=== PATIENT | male | born 1955 | race Caucasian/White ===

== ENCOUNTER 2017-03-05 10:13 | Inpatient (IN) | payer OTHER ==
[~2017-03-05] VITALS: Ht 180.3 cm; Wt 97.0 kg
[~2017-03-05 10:13] MED LIST: Z.0.NO CURRENT MEDS
[2017-03-05 10:17] VITALS: BP 112/80; PULSE 74; RESP 16; TEMP 98.6; O2SAT 98
[2017-03-05] MEDS ORDERED: oxyCODONE/ACETAMINOPHEN 5 MG/325 MG TAB PO ONE (10:45)
[2017-03-05] MEDS ORDERED: KETOROLAC TROMETHAMINE 60 MG/2 ML (IM) VIAL IM ONE (10:45)
[2017-03-05] MEDS ORDERED: SODIUM CHLOR 0.9% 1000 ML INJ 800 ML IV ONE (11:23)
[2017-03-05] MEDS ORDERED: SODIUM CHLOR 0.9% 1000 ML INJ 1,000 ML IV ONE (11:23)
[2017-03-05] MEDS ORDERED: cefTRIAXone INJ 1,000 MG in SODIUM CHLORIDE 0.9% INJ 100 ML IV ONE (11:30)
[2017-03-05] MEDS ORDERED: VANCOMYCIN INJ 1,500 MG in SODIUM CHLORID 0.9% 500 ML INJ 500 ML IV ONE (11:30)
[2017-03-05 11:58] LABS: AUTOMATED NEUTROPHIL # 4.9 TH/MM3 (1.8-7.7); BASOPHIL # 0.1 TH/MM3 (0-0.2); BASOPHIL % 1.2 % (0.0-2.0); EOSINOPHIL # 0.2 TH/MM3 (0-0.4); HEMATOCRIT 36.5 % (39.0-51.0); HEMOGLOBIN 12.7 GM/DL (13.0-17.0); LYMPH % 27.8 % (9.0-44.0); LYMPHOCYTE # 2.3 TH/MM3 (1.0-4.8); MEAN CELL VOLUME 90.6 FL (80.0-100.0); MEAN CORPUSCULAR HEMOGLOBIN 31.5 PG (27.0-34.0); MEAN CORPUSCULAR HGB CONC 34.7 % (32.0-36.0); MEAN PLATELET VOLUME 7.8 FL (7.0-11.0); MONO % 7.8 % (0.0-8.0); MONOCYTE # 0.6 TH/MM3 (0-0.9); NEUT % 60.2 % (16.0-70.0); PLATELET COUNT 423 TH/MM3 (150-450); RED BLOOD COUNT 4.02 MIL/MM3 (4.50-5.90); RED CELL DISTRIBUTION WIDTH 12.5 % (11.6-17.2); WHITE BLOOD COUNT 8.2 TH/MM3 (4.0-11.0)
[2017-03-05 12:30] LABS: ALBUMIN 3.2 GM/DL (3.4-5.0); ALT (GPT) 60 U/L (12-78); AST (GOT) 34 U/L (15-37); BICARBONATE 28.9 MEQ/L (21.0-32.0); BLOOD UREA NITROGEN 23 MG/DL (7-18); CALCIUM 8.9 MG/DL (8.5-10.1); CHLORIDE 101 MEQ/L (98-107); CREATININE 0.92 MG/DL (0.60-1.30); GLOMERULAR FILTRATION RATE 84 ML/MIN (>89); GLUCOSE,RANDOM 95 MG/DL (74-106); SODIUM (NA) 136 MEQ/L (136-145)
[2017-03-05 12:32] LABS: ALKALINE PHOSPHATASE 101 U/L (45-117); TOTAL BILIRUBIN ADULT 0.4 MG/DL (0.2-1.0); TOTAL PROTEIN 7.4 GM/DL (6.4-8.2)
[2017-03-05 12:37] VITALS: BP 136/94; PULSE 57; RESP 19; O2SAT 99
[2017-03-05 12:47] LABS: BILIRUBIN, URINE NEG (NEG); BLOOD, URINE NEG (NEG); GLUCOSE,URINE NEG (NEG); KETONE, URINE NEG (NEG); MUCUS URINE FEW /lpf (OCC); NITRITE,URINE NEG (NEG); PH, URINE 5.5 (5.0-8.5); URINE COLOR YELLOW (YELLW/STRAW); URINE LEUKOCYTE ESTERASE NEG (NEG)
[2017-03-05] MEDS ORDERED: HYDROmorphone HCL PF 2 MG/ML VIAL IV PUSH ONE (13:15)
[2017-03-05 13:31] LABS: WBC, SYNOVIAL FLUID 64000 /MM3 (0-200)
--- NOTE | 2017-03-05 13:55 | PD ---
HPI Chief Complaint: Pain: Acute or Chronic Time Seen by Provider: 10:20 Travel History International Travel<30 days: No Contact w/Intl Traveler<30days: No Traveled to known affect area: No History of Present Illness HPI 61-year-old male arrives to the ER complaining of right knee pain. He's had had intermittent knee pain for more than a week now. He reports swelling and pain with movement. Palpation is also painful. He denies fever. Onset gradual. Timing constant. He reports arthrocentesis was performed and Major approximately one week prior. PFSH Past Medical History Cancer: Yes (skin ca ) Cardiovascular Problems: No Diabetes: No Diminished Hearing: No Endocrine: No Genitourinary: No Hepatitis: No Hiatal Hernia: No Immune Disorder: No Musculoskeletal: No Neurologic: No Psychiatric: No Reproductive: No Respiratory: No Sleep Apnea: Yes Thyroid Disease: No Past Surgical History Abdominal Surgery: Yes (umbilical hernia repair) AICD: No Joint Replacement: No Pacemaker: No Tonsillectomy: Yes Other Surgery: Yes Social History Alcohol Use: Yes ([facility]) Tobacco Use: No Substance Use: No Allergies-Medications (Allergen,Severity, Reaction): Coded Allergies: No Known Allergies (Verified Allergy, Unknown, 03/05/17) Reported Meds & Prescriptions Reported Meds & Active Scripts Active Review of Systems Except as stated in HPI: all other systems reviewed are Neg General / Constitutional: No: Fever Physical Exam Narrative GENERAL: 61-year-old male well-nourished well-developed mild to moderate distress SKIN: Focused skin assessment warm/dry. HEAD: Atraumatic. Normocephalic. EYES: Pupils equal and round. No scleral icterus. No injection or drainage. ENT: No nasal bleeding or discharge. Mucous membranes pink and moist. NECK: Trachea midline. No JVD. CARDIOVASCULAR: Regular rate and rhythm. No murmur appreciated. RESPIRATORY: No accessory muscle use. Clear to auscultation. Breath sounds equal bilaterally. GASTROINTESTINAL: Abdomen soft, non-tender, nondistended. Hepatic and splenic margins not palpable. MUSCULOSKELETAL: There is swelling about the right knee in the suprapatellar distribution and along the lateral aspects of the patella. No erythema or induration about the skin. There is marked tenderness with flexion extension at the knee. NEUROLOGICAL: Awake and alert. No obvious cranial nerve deficits. Motor grossly within normal limits. Normal speech. PSYCHIATRIC: Appropriate mood and affect; insight and judgment normal. Data Data Last Documented VS Vital Signs Date Time Temp Pulse Resp B/P (MAP) Pulse Ox O2 Delivery O2 Flow Rate FiO2 03/05/17 12:37 57 19 136/94 (108) 99 Room Air 03/05/17 10:17 98.6 Vital signs reviewed Orders Orders Oxycodone-Acetamin 5-325 Mg (Percocet (03/05/17 10:45) Ketorolac Inj (Toradol Inj) (03/05/17 10:45) Sepsis Workup Initiated (03/05/17 ) Complete Blood Count With Diff (03/05/17 11:23) Comprehensive Metabolic Panel (03/05/17 11:23) Lactic Acid Sepsis Protocol (03/05/17 11:23) Urinalysis - C+S If Indicated (03/05/17 11:23) Blood Culture (03/05/17 11:23) Ecg Monitoring (03/05/17 11:23) Iv Access Insert/Monitor (03/05/17 11:23) Oximetry (03/05/17 11:23) Oxygen Administration (03/05/17 11:23) Sodium Chlor 0.9% 1000 Ml Inj (Ns 1000 M (03/05/17 11:23) Sodium Chlor 0.9% 1000 Ml Inj (Ns 1000 M (03/05/17 11:23) Ceftriaxone Inj (Rocephin Inj) (03/05/17 11:30) Vancomycin Inj (Vancomycin Inj) (03/05/17 11:30) Synovial Fluid Glucose (03/05/17 11:23) Synovial Fluid Total Protein (03/05/17 11:23) Synovial Fl Cell Count + Diff (03/05/17 11:23) Fluid Culture And Gram Stain (03/05/17 11:23) Hydromorphone Pf Inj (Dilaudid Pf Inj) (03/05/17 13:15) Admit To Inpatient (03/05/17 ) Code Status (03/05/17 13:59) Vital Signs (Adult) Q4H (03/05/17 13:59) Activity Oob With Assistance (03/05/17 13:59) Diet Regular Basic (03/05/17 Lunch) Sodium Chloride 0.9% Flush (Ns Flush) (03/05/17 14:00) Sodium Chloride 0.9% Flush (Ns Flush) (03/05/17 21:00) Acetaminophen (Tylenol) (03/05/17 14:00) Ondansetron Inj (Zofran Inj) (03/05/17 14:00) Basic Metabolic Panel (Bmp) (03/06/17 06:00) Complete Blood Count With Diff (03/06/17 06:00) Chest, Single Ap (03/05/17 13:59) Electrocardiogram (03/05/17 13:59) Pt Request For Service (03/05/17 13:59) Scd Bilateral/Knee High DOMINIK.BID (03/05/17 13:59) Naloxone Inj (Narcan Inj) (03/05/17 14:00) Magnesium Hydroxide Liq (Milk Of Magnesi (03/05/17 14:00) Inpatient Certification (03/05/17 ) Westergren Sedimentation Rate (03/05/17 13:59) Ceftriaxone Inj (Rocephin Inj) (03/06/17 08:00) Consult Orthopedic (03/05/17 ) Admit Order (Ed Use Only) (03/05/17 14:09) Vancomycin Consult Pharmacy (Vancomycin (03/05/17 14:15) Acetamin-Hydrocod 325-5 Mg ([place] 5-325 (03/05/17 14:15) Hydromorphone Pf Inj (Dilaudid Pf Inj) (03/05/17 14:15) Labs Laboratory Tests Test 03/05/17 11:30 03/05/17 11:40 Urine Color YELLOW Urine Turbidity CLEAR Urine pH 5.5 Urine Specific [place] 1.021 Urine Protein TRACE mg/dL Urine Glucose (UA) NEG mg/dL Urine Ketones NEG mg/dL Urine Occult Blood NEG Urine Nitrite NEG Urine Bilirubin NEG Urine Urobilinogen LESS THAN 2.0 MG/DL Urine Leukocyte Esterase NEG Urine WBC 3 /hpf Urine Mucus FEW /lpf Microscopic Urinalysis Comment CATH-CULT NOT IND Synovial Fluid Color YELLOW Synovial Fluid Appearance MARKED Synovial Fluid WBC 60727 /MM3 Synovial Fluid RBC 3000 /MM3 Synovial Fluid Neutrophils 100 % Synovial Fluid Lymphocytes 0 % Synovial Fluid Glucose 8 mg/dL Synovial Fluid Total Protein 4.7 g/dL White Blood Count 8.2 TH/MM3 Red Blood Count 4.02 MIL/MM3 Hemoglobin 12.7 GM/DL Hematocrit 36.5 % Mean Corpuscular Volume 90.6 FL Mean Corpuscular Hemoglobin 31.5 PG Mean Corpuscular Hemoglobin Concent 34.7 % Red Cell Distribution Width 12.5 % Platelet Count 423 TH/MM3 Mean Platelet Volume 7.8 FL Neutrophils (%) (Auto) 60.2 % Lymphocytes (%) (Auto) 27.8 % Monocytes (%) (Auto) 7.8 % Eosinophils (%) (Auto) 3.0 % Basophils (%) (Auto) 1.2 % Neutrophils # (Auto) 4.9 TH/MM3 Lymphocytes # (Auto) 2.3 TH/MM3 Monocytes # (Auto) 0.6 TH/MM3 Eosinophils # (Auto) 0.2 TH/MM3 Basophils # (Auto) 0.1 TH/MM3 CBC Comment DIFF FINAL Differential Comment Erythrocyte Sedimentation Rate 65 mm/hr Blood Urea Nitrogen 23 MG/DL Creatinine 0.92 MG/DL Random Glucose 95 MG/DL Total Protein 7.4 GM/DL Albumin 3.2 GM/DL Calcium Level 8.9 MG/DL Alkaline Phosphatase 101 U/L Aspartate Amino Transf (AST/SGOT) 34 U/L Alanine Aminotransferase (ALT/SGPT) 60 U/L Total Bilirubin 0.4 MG/DL Sodium Level 136 MEQ/L Potassium Level 3.7 MEQ/L Chloride Level 101 MEQ/L Carbon Dioxide Level 28.9 MEQ/L Anion Gap 6 MEQ/L Estimat Glomerular Filtration Rate 84 ML/MIN Lactic Acid Level 0.9 mmol/L MDM Medical Decision Making Medical Screen Exam Complete: Yes Emergency Medical Condition: Yes Medical Record Reviewed: Yes Differential Diagnosis Septic arthritis, osteoporosis, hemarthrosis Narrative Course The patient has septic arthritis. Synovial fluid white cells are 68,000 and are 100% neutrophils. Vancomycin initiated. Sepsis protocol IV fluids started. Case d/w mars [facility], who states operative intervention will be scheduled for tomorrow. Patient d/w with Dr Bishop for [facility] hospitalist service Diagnosis Primary Impression: Septic arthritis Qualified Codes: M00.9 - Pyogenic arthritis, unspecified Admitting Information Admitting Physician Requests: Admit Scripts Hydrocodone-Acetaminophen ([place]) 5 Mg-325 Mg Tab 1 TAB PO Q4H Y for PAIN, #60 TAB 0 Refills Prov: Jacobo Lilly PA/Grocery Carrier PA 03/06/17 David Bansal MD Mar 05, 2017 13:55
[2017-03-05] MEDS ORDERED: NALOXONE HCL 0.4 MG/ML AMP IV PUSH PRN (14:00)
[2017-03-05] MEDS ORDERED: ONDANSETRON HCL 4 MG/2 ML VIAL IVP PRN (14:00)
[2017-03-05] MEDS ORDERED: ACETAMINOPHEN 325 MG TAB PO PRN (14:00)
[2017-03-05] MEDS ORDERED: MAGNESIUM HYDROXIDE SUSP 30 ML CUP PO PRN (14:00)
[2017-03-05] MEDS ORDERED: ACETAMINOPHEN/HYDROcodone 325 MG/5 MG TAB PO PRN (14:15)
[2017-03-05] MEDS ORDERED: Vancomycin Consult Pharmacy 1 EA OTHER SCH (14:15)
[2017-03-05] MEDS ORDERED: HYDROmorphone HCL PF 2 MG/ML VIAL IV PUSH PRN (14:15)
--- NOTE | 2017-03-05 14:21 | HHI.HP ---
HPI Service [facility] Hospitalists Primary Care Physician Luis Jones D.O. Admission Diagnosis Septic Arthritis R Knee Chief Complaint: Edema and pain right knee Travel History International Travel<30 Days: No Contact w/Intl Traveler <30 Da: No Traveled to Known Affected Are: No History of Present Illness This is a 61-year-old male patient with past medical history which includes borderline hypertension not on medication, obstructive and obstructive sleep apnea does use CPAP at night. Patient has an extensive history regarding his right knee. All meniscal tear right knee with repair approximately 18 months ago. Patient then had cortisone injection with Dr. Duron approximally 4 months ago. Approximately 4 months ago patient had contusion after kneeling on a rock in [facility] diagnosed with patella bursitis. Then after windsurfing in [place] patient noticed his right knee became swollen and painful he was treated for hospital-acquired with a aspirated fluid was serosanguineous at that time he was discharged home with ibuprofen diagnosed with effusion. Patient was also given a cortisone injection while in [place]. Patient returned to the hospital today due to continued edema and pain in the right knee. Aspiration of joint fluid reveals 64,000 white blood cells, 3000 red blood cells 100 neutrophils. Consistent with septic arthritis. Patient has been started on vancomycin and Rocephin in the emergency department. Patient denies fevers chills nausea vomiting diarrhea constipation chest pain or shortness of breath. Review of Systems Constitutional: DENIES: Fatigue, Fever Eyes: DENIES: Blurred vision, Diplopia, Vision loss Respiratory: DENIES: Cough, Sputum production, Shortness of breath Cardiovascular: DENIES: Chest pain, Palpitations, Dyspnea on Exertion Musculoskeletal: COMPLAINS OF: Joint pain, Stiffness, Joint Swelling Neurologic: DENIES: Abnormal gait, Headache, Localized weakness, Speech Problems Psychiatric: DENIES: Anxiety, Confusion, Depression Past Family Social History Past Medical History borderline hypertension not on medication, obstructive and obstructive sleep apnea does use CPAP at night Past Surgical History Colonoscopy and hernia repair Reported Medications Soma 350 mg as needed at bedtime Allergies: Coded Allergies: No Known Allergies (Verified Allergy, Unknown, 03/05/17) Active Ordered Medications Current Medications Medications (Trade) Dose Ordered Sig/Jc Route Start Time Stop Time Status Last Admin (NS Flush) 2 ml UNSCH PRN IV FLUSH 03/05/17 14:00 (NS Flush) 2 ml BID IV FLUSH 03/05/17 21:00 (Tylenol) 650 mg Q4H PRN PO 03/05/17 14:00 (Zofran Inj) 4 mg Q6H PRN IVP 03/05/17 14:00 (Narcan Inj) 0.4 mg UNSCH PRN IV PUSH 03/05/17 14:00 (Milk Of Lorena Christensen) 30 ml Q12H PRN PO 03/05/17 14:00 Vancomycin HCl 1000 mg/Sodium Chloride 250 ml @ 250 mls/hr Q12H IV 03/06/17 01:00 UNV Ceftriaxone Sodium 1000 mg/ Sodium Chloride 100 ml @ 200 mls/hr Q24H IV 03/06/17 08:00 Pharmacy Profile Note ml @ 0 mls/hr UNSCH OTHER 03/05/17 14:15 ([place] 5-325 Mg) 1 tab Q4H PRN PO 03/05/17 14:15 UNV (Dilaudid Pf Inj) 0.5 mg Q4H PRN IV PUSH 03/05/17 14:15 UNV Family History Review of noncontributory Social History Former tobacco user Denies illicit drug use Occasional social EtOH use Physical Exam Vital Signs Vital Signs Date Time Temp Pulse Resp B/P (MAP) Pulse Ox O2 Delivery O2 Flow Rate FiO2 03/05/17 12:37 57 19 136/94 (108) 99 Room Air 03/05/17 12:29 98 Room Air 03/05/17 12:29 (91) Room Air 03/05/17 10:17 98.6 74 16 112/80 (91) 98 Physical Exam GENERAL: This is a well-nourished, well-developed patient, in no apparent distress. SKIN: Edema right knee HEAD: Atraumatic. Normocephalic. No temporal or scalp tenderness. EYES: Extraocular motions intact. No scleral icterus. No injection or drainage. ENT: Nose without bleeding, purulent drainage or septal hematoma. Throat without erythema, tonsillar hypertrophy or exudate. Uvula midline. Airway patent. NECK: Trachea midline. No JVD or lymphadenopathy. Supple, nontender, no meningeal signs. CARDIOVASCULAR: Regular rate and rhythm RESPIRATORY: Clear to auscultation. Breath sounds equal bilaterally. GASTROINTESTINAL: Abdomen soft, non-tender, nondistended. MUSCULOSKELETAL: No calf tenderness. Negative Homans sign bilaterally. NEUROLOGICAL: Awake and alert. No focal deficits appreciated. Motor and sensory grossly within normal limits. Five out of 5 muscle strength in all muscle groups. Normal speech. Laboratory Laboratory Tests Test 03/05/17 11:30 03/05/17 11:40 Urine Color YELLOW Urine Turbidity CLEAR Urine pH 5.5 Urine Specific [place] 1.021 Urine Protein TRACE Urine Glucose (UA) NEG Urine Ketones NEG Urine Occult Blood NEG Urine Nitrite NEG Urine Bilirubin NEG Urine Urobilinogen LESS THAN 2.0 Urine Leukocyte Esterase NEG Urine WBC 3 Urine Mucus FEW Microscopic Urinalysis Comment CATH-CULT NOT IND Synovial Fluid Color YELLOW Synovial Fluid Appearance MARKED Synovial Fluid WBC 41022 Synovial Fluid RBC 3000 Synovial Fluid Neutrophils 100 Synovial Fluid Lymphocytes 0 White Blood Count 8.2 Red Blood Count 4.02 Hemoglobin 12.7 Hematocrit 36.5 Mean Corpuscular Volume 90.6 Mean Corpuscular Hemoglobin 31.5 Mean Corpuscular Hemoglobin Concent 34.7 Red Cell Distribution Width 12.5 Platelet Count 423 Mean Platelet Volume 7.8 Neutrophils (%) (Auto) 60.2 Lymphocytes (%) (Auto) 27.8 Monocytes (%) (Auto) 7.8 Eosinophils (%) (Auto) 3.0 Basophils (%) (Auto) 1.2 Neutrophils # (Auto) 4.9 Lymphocytes # (Auto) 2.3 Monocytes # (Auto) 0.6 Eosinophils # (Auto) 0.2 Basophils # (Auto) 0.1 CBC Comment DIFF FINAL Differential Comment Blood Urea Nitrogen 23 Creatinine 0.92 Random Glucose 95 Total Protein 7.4 Albumin 3.2 Calcium Level 8.9 Alkaline Phosphatase 101 Aspartate Amino Transf (AST/SGOT) 34 Alanine Aminotransferase (ALT/SGPT) 60 Total Bilirubin 0.4 Sodium Level 136 Potassium Level 3.7 Chloride Level 101 Carbon Dioxide Level 28.9 Anion Gap 6 Estimat Glomerular Filtration Rate 84 Lactic Acid Level 0.9 Date/Time Source Procedure Growth Status 03/05/17 11:40 Blood Peripheral Aerobic Blood Culture Pending Received 03/05/17 11:40 Blood Peripheral Anaerobic Blood Culture Pending Received 03/05/17 11:30 Fluid Synovial Fluid Gram Stain - Final Resulted 03/05/17 11:30 Fluid Synovial Fluid Body Fluid Culture Pending Resulted Result Diagram: 03/05/17 1140 03/05/17 1140 Caprini VTE Risk Assessment Caprini VTE Risk Assessment: No/Low Risk (score <= 1) Caprini Risk Assessment Model Point Value = 1 Point Value = 2 Point Value = 3 Point Value = 5 Age 41-60 Minor surgery BMI > 25 kg/m2 Swollen legs Varicose veins or History of unexplained or recurrent spontaneous Oral contraceptives or hormone replacement Sepsis (< 1 month) Serious lung disease, including pneumonia (< 1 month) Abnormal pulmonary function Acute myocardial infarction Congestive heart failure (< 1 month) History of inflammatory bowel disease Medical patient at bed rest Age 61-74 Arthroscopic surgery Major open surgery (> 45 min) Laparoscopic surgery (> 45 min) Malignancy Confined to bed (> 72 hours) Immobilizing plaster cast Central venous access Age >= 75 History of VTE Family history of VTE Factor V Leiden Prothrombin [id number] Lupus anticoagulant Anticardiolipin antibodies Elevated serum homocysteine Heparin-induced thrombocytopenia Other congenital or acquired thrombophilia Stroke (< 1 month) Elective arthroplasty Hip, pelvis, or leg fracture Acute spinal cord injury (< 1 month) Prophylaxis Regimen Total Risk Factor Score Risk Level Prophylaxis Regimen 0-1 Low Early ambulation 2 Moderate Order ONE of the following: *Sequential Compression Device (SCD) *Heparin 5000 units SQ BID 3-4 Higher Order ONE of the following medications: *Heparin 5000 units SQ TID *Enoxaparin/Lovenox 40 mg SQ daily (WT < 150 kg, CrCl > 30 mL/min) *Enoxaparin/Lovenox 30 mg SQ daily (WT < 150 kg, CrCl > 10-29 mL/min) *Enoxaparin/Lovenox 30 mg SQ BID (WT < 150 kg, CrCl > 30 mL/min) AND/OR *Sequential Compression Device (SCD) 5 or more Highest Order ONE of the following medications: *Heparin 5000 units SQ TID (Preferred with Epidurals) *Enoxaparin/Lovenox 40 mg SQ daily (WT < 150 kg, CrCl > 30 mL/min) *Enoxaparin/Lovenox 30 mg SQ daily (WT < 150 kg, CrCl > 10-29 mL/min) *Enoxaparin/Lovenox 30 mg SQ BID (WT < 150 kg, CrCl > 30 mL/min) AND *Sequential Compression Device (SCD) Assessment and Plan Problem List: (1) Septic arthritis ICD Codes: M00.9 - Pyogenic arthritis, unspecified Status: Acute Plan: -Patient was in his normal state of health until approximately a week ago while he was in [facility]. After windsurfing patient noticed his right knee became swollen and painful he was treated in [facility] with aspiration of serosanguineous fluid then discharged home with ibuprofen diagnosed with joint effusion. Patient returned to the hospital today due to continued edema and pain in the right knee. -Aspiration of joint fluid reveals 64,000 white blood cells, 3000 red blood cells 100 neutrophils. Consistent with septic arthritis. -Patient has been started on vancomycin (with pharmacy consult) and Rocephin in the emergency department. - Orthopedic surgery consulted - patient NPO after midnight plan OR tomorrow - patient does not want hydrocodone for pain reports Soma works well for him SCDs for DVT prophylaxis Assessment and Plan Patient examined. Assessment and plan formulated with Kay Mejia PA-C. I agree with the above. Dr. Cedillo to take pt to OR for I&D. Physician Certification 2 Midnight Certification Type: Admission for Inpatient Services Order for Inpatient Services The services are ordered in accordance with Medicare regulations or non- Medicare payer requirements, as applicable. In the case of services not specified as inpatient-only, they are appropriately provided as inpatient services in accordance with the 2-midnight benchmark. Estimated LOS (days): 3 days is the estimated time the patient will need to remain in the hospital, assuming treatment plan goals are met and no additional complications. Post-Hospital Plan: Home aKy Mejia Mar 05, 2017 14:21 Silver Bishop DO Mar 08, 2017 14:03
--- NOTE | 2017-03-05 15:08 | RADRPT ---
EXAM DATE/TIME: 03/05/2017 14:33 [place] COMPARISON: No previous studies available for comparison. INDICATIONS : Preoperative chest X-Ray. No chest complaints. MEDICAL HISTORY : None. SURGICAL HISTORY : Umbilical hernia repair. Right knee athroscopy. ENCOUNTER: Initial ACUITY: 2 weeks PAIN SCORE: 5/10 LOCATION: Bilateral chest FINDINGS: A single view of the chest demonstrates the lungs to be symmetrically aerated without evidence of mas s, infiltrate or effusion. The cardiomediastinal contours are unremarkable. Osseous structures are intact. CONCLUSION: No acute disease. Leoncio Cleveland MD FACR on March 05, 2017 at 15:05 Board Certified Radiologist. This report was verified electronically.
[2017-03-05 16:00] VITALS: BP 107/64; PULSE 55; RESP 16; TEMP 97.1; O2SAT 96
--- NOTE | 2017-03-05 17:40 | MB ---
cc: RONNY CEDILLO DATE OF CONSULTATION: 03/05/2017 CHIEF COMPLAINT Right knee pain and swelling. HISTORY OF PRESENT ILLNESS The patient is a 61-year-old white male who presents today with a 3-4 weeks history of right knee pain and swelling. He reports approximately 3-4 weeks ago he was in [place] when he had knee pain and swelling. He went to the emergency room in [place] and states that they drained his knee with a needle and tested for cultures. He reports that those cultures came back negative and had no signs of infection. He has since travel back home here to [place] and states that the pain has gotten worse over the past couple of weeks. He reports that there was significant pain and swelling in the right knee. He reports difficulty ambulating. He reports pain with weightbearing and pain with movement of the knee. He reports noticeable swelling and also states he has some redness of the knee. Denies any numbness, tingling or radiation of symptoms. Denies any recent fall and cannot remember any significant mechanism or insinuating incident that would have caused this. Denies any shortness of breath. 03/15 denies any fevers. Denies any chills. Aspiration was done in the emergency department which showed 64,000 white blood cell count, consistent with septic arthritis and the cultures showed gram-positive cocci in pairs. REVIEW OF SYSTEMS Review of systems negative for what is mentioned in the HPI. PAST MEDICAL HISTORY: Borderline hypertension which he does not have any treatment obstructive sleep apnea for which he uses C-PAP PAST SURGICAL HISTORY: Past surgical history of colonoscopy in hernia repair. REPORTED MEDICATIONS: Soma 350 milligrams as needed at bedtime. ALLERGIES NO KNOWN DRUG ALLERGIES MEDICATIONS: Inpatient medications for complete list of those please see the patient's chart. FAMILY HISTORY Noncontributory. SOCIAL HISTORY Former drug user. Denies illicit drug use. Occasional alcohol use. PHYSICAL EXAMINATION VITAL SIGNS: pulse 57, temperature 98.6, respiratory 19, blood pressure 136/94, O2 saturation 99 on room air. IN GENERAL: Well-developed, well-nourished 61- year-old white male in no acute distress resting comfortably. Head: Normocephalic, atraumatic. Ears: Hearing intact bilaterally. Eyes: Extraocular motions intact and pupils equal, round and reactive to light. NEUROLOGIC: Cranial nerves II-XII are grossly intact. NECK: Is supple. No evidence of lymphadenopathy. CHEST: No use of accessory muscles while breathing and no wheezes appreciated at bedside. HEART: No grade 4 murmur present. MUSCULOSKELETAL: Right leg full movement of the hip, ankle and toes and no pain. There is 2 to 3+ swelling of the right knee. There is noticeable fluctuance. There is a bandage from previous arthrocentesis. He has pain with flexion/extension of the knee. There is no active drainage. He has full sensation distally. Left lower extremity full motion of the hip, knee, ankle and toes and no pain with full sensation distally. RESULTS Knee aspirate of the right knee yielded positive growth of gram-positive cocci in pairs with a 60,000 white count. ASSESSMENT Septic arthritis the right knee. PLAN The patient ate breakfast this morning and is unable to proceed to surgery this time. He will knee definitive irrigation and debridement of the right knee. We will plan on doing this first thing in the morning. He will have diet today and be n.p.o. after midnight. We will take him to surgery tomorrow. The risks and benefits of the surgery were discussed with patient and include, but not limited to, infection, pain, blood loss, progression of arthritis, heart attack, stroke, risk of anesthesia. Informed this of the over irrigation debridement right knee will plan on doing this tomorrow. We will then consult infectious disease to manage IV antibiotics. The patient understood and questions were answered and the above the patient was reviewed with and discussed with Dr. Cedillo and he agreed with the above dictation. DICTATED BY: Jacobo Lilly Jacobo Salazar /2:31 PM /5:00 PM
[2017-03-05 20:00] VITALS: BP 107/71; PULSE 64; RESP 20; TEMP 96.9; O2SAT 95
[2017-03-05] MEDS: CARISOPRODOL 350 MG TAB PO PRN (20:57)
[2017-03-05] MEDS: SODIUM CHLORIDE 0.9% FLUSH 10 ML FLUSH IV FLUSH SCH (20:58)
[2017-03-06] VITALS (7 sets, daily range): BP systolic 105–137; BP diastolic 60–82; PULSE 63–88; RESP 18–20; TEMP 97.7–99.6; O2SAT 93–100
[2017-03-06] MEDS ORDERED: VANCOMYCIN INJ 1,000 MG in SODIUM CHLOR 0.9% 250 ML INJ 250 ML IV SCH (01:00)
[2017-03-06] MEDS: VANCOMYCIN 1,500 MG/NS 500 ML IV SCH ×4 (02:06→11:51)
[2017-03-06] MEDS: SODIUM CHLORIDE 0.9% FLUSH 10 ML FLUSH IV FLUSH PRN ×2 (02:07→06:01)
[2017-03-06] MEDS: HYDROmorphone HCL PF 2 MG/ML VIAL IV PRN ×6 (02:09→20:26)
[2017-03-06] MEDS ORDERED: LACTATED RINGER'S 1000 ML IV PRN (06:00)
--- NOTE | 2017-03-06 07:33 | PD.ORT.PN ---
Subjective Subjective Remarks s/p right knee infection Objective Vitals Vital Signs Date Time Temp Pulse Resp B/P (MAP) Pulse Ox O2 Delivery O2 Flow Rate FiO2 03/06/17 04:00 98.0 63 20 106/70 (82) 95 03/06/17 00:00 98.0 63 20 126/73 (90) 96 03/05/17 20:00 96.9 64 20 107/71 (83) 95 03/05/17 17:00 18 03/05/17 16:00 97.1 55 16 107/64 (78) 96 03/05/17 15:11 (108) 03/05/17 12:37 57 19 136/94 (108) 99 Room Air 03/05/17 12:29 98 Room Air 03/05/17 12:29 (91) Room Air 03/05/17 10:17 98.6 74 16 112/80 (91) 98 I/O 03/05/17 03/05/17 03/05/17 03/06/17 03/06/17 03/06/17 07:00 15:00 23:00 07:00 15:00 23:00 Intake Total 2100 ml 1115 ml Balance 2100 ml 1115 ml Intake Oral 600 ml IV Total 2100 ml 515 ml # Voids 1 Result Diagram: 03/05/17 1140 03/05/17 1140 Imaging Last 24 hours Impressions Chest X-Ray 03/05/17 1359 Signed Impressions: Service Date/Time: Sunday, March 05, 2017 14:33 - CONCLUSION: No acute disease. Leoncio Cleveland MD FACR Objective Remarks RLE: swelling and erythema. pain with movement Assessment & Plan Assessment and Plan 1) Right knee septic arthritis -npo -surgery today POST OP -WBAT -daily dressing changes POD 2 -DC Drain POD 3 -Infectious dz consulted for IV Abx mgmt -clear for DC home once IV Abx arranged -f/u with Nguyen or PA in 2 weeks Jacobo Lilly/Wet Cotton Feeder PA Mar 06, 2017 07:33
[2017-03-06] MEDS ORDERED: NORC5TAB PO (07:34)
--- NOTE | 2017-03-06 07:35 | HHI.FF ---
Face to Face Verification Diagnosis: (1) Septic arthritis Nursing Nursing: Other (PICC line management) Dressing Changes: Daily dressing change, Benny wrap, 4x4s, Xeroform I have seen patient Pablo Taylor on 03/06/17. My clinical findings support the need for the requested home health care services because: Ltd mobility - disease progression I certify that my clinical findings support that this patient is homebound because: Post-op weakness Jacobo Lilly/First Popeye MCLEAN Mar 06, 2017 07:35
[2017-03-06] MEDS: SODIUM CHLORIDE 0.9% FLUSH 10 ML FLUSH IV FLUSH SCH ×2 (07:51→20:29)
[2017-03-06] MEDS ORDERED: cefTRIAXone INJ 1,000 MG in SODIUM CHLORIDE 0.9% INJ 100 ML IV SCH (08:00)
[2017-03-06] MEDS ORDERED: GENTAMICIN SULFATE 80 MG/2 ML VIAL ONE (08:47)
[2017-03-06 08:56] LABS: AUTOMATED NEUTROPHIL # 4.9 TH/MM3 (1.8-7.7); BASOPHIL % 0.6 % (0.0-2.0); EOSINOPHIL # 0.3 TH/MM3 (0-0.4); EOSINOPHIL % 3.2 % (0.0-4.0); HEMATOCRIT 33.6 % (39.0-51.0); HEMOGLOBIN 11.5 GM/DL (13.0-17.0); LYMPH % 23.1 % (9.0-44.0); LYMPHOCYTE # 1.8 TH/MM3 (1.0-4.8); MEAN CORPUSCULAR HGB CONC 34.1 % (32.0-36.0); MEAN PLATELET VOLUME 7.7 FL (7.0-11.0); MONO % 10.5 % (0.0-8.0); MONOCYTE # 0.8 TH/MM3 (0-0.9); NEUT % 62.6 % (16.0-70.0); PLATELET COUNT 369 TH/MM3 (150-450); RED BLOOD COUNT 3.69 MIL/MM3 (4.50-5.90); RED CELL DISTRIBUTION WIDTH 12.6 % (11.6-17.2); WHITE BLOOD COUNT 7.9 TH/MM3 (4.0-11.0)
[2017-03-06 09:19] LABS: BICARBONATE 29.1 MEQ/L (21.0-32.0); CALCIUM 8.3 MG/DL (8.5-10.1); CREATININE 0.78 MG/DL (0.60-1.30)
[2017-03-06] MEDS ORDERED: MORPHINE SULFATE 2 MG/ML INJ IV PUSH PRN (09:30)
[2017-03-06] MEDS ORDERED: diphenhydrAMINE HCL 25 MG CAP PO PRN (09:30)
[2017-03-06] MEDS ORDERED: Post-op Orders (for Pharmacy) XX ONE (09:30)
[2017-03-06] MEDS ORDERED: ACETAMINOPHEN/HYDROcodone 325 MG/7.5 MG TAB PO PRN (09:30)
--- NOTE | 2017-03-06 09:34 | PD.OP ---
cc: Yonas Calvo MD Operative Report Date of Surgery: Mar 06, 2017 Preoperative Diagnosis: Right knee septic arthritis Postoperative Diagnosis: Procedure: Right knee arthrotomy with irrigation and debridement Anesthesia: Gen. Surgeon: Yonas Calvo Project Management Analyst(s): DIANNE Guo PA-C The surgical procedure was assisted by my physician records assistant. My P.A. presence was necessary throughout this case for the manipulation and positioning of the surgical extremity. My P.A. was assisting me throughout the duration of this procedure. The skill set of a physician records assistant was medically necessary to complete this procedure. During the surgical case the certified surgical technician was working at the back table and the physician records assistant was directly assisting me. Operation and Findings: .Patient was seen and evaluated preoperatively. Patient was found to have infection of the right knee joint. Knee effusion and erythema were noted. Gram stain was positive for infection and cell count was elevated. Informed consent was obtained after detailed discussion of risk and benefits of surgery. Operative site was marked. Patient was brought to the operating room. IV sedation and GETA were administered by anesthesiologist. Operative leg was prepped with alcohol followed by Hibiclens and draped in usual sterile fashion. Timeout procedure was performed. Procedure began with a 4 cm incision over the lateral knee. Subcutaneous tissue dissected with Bovie. Iliotibial band was opened in line with fibers. The joint was now opened through arthrotomy. A large volume of purulent fluid was found within the knee. Specimen was obtained for cultures and sensitivities. The knee joint was manipulated. The knee joint was palpated and loculations were manually debrided. A portion of the synovium was excised. After excisional debridement was complete, the wound was thoroughly irrigated with sterile saline. At this point the wound was clean. Capsule was closed with #1 PDS, Subcutaneous tissues closed with 3-0 PDS and skin was closed with 3 -0 nylon. A EMILY drain was placed into the wound. Sterile dressings were applied. Patient was awakened and transferred to recovery in stable condition. Needle and sponge counts were correct Yonas Calvo MD Mar 06, 2017 09:34
[2017-03-06] MEDS ORDERED: *MEPERIDINE 25 MG INJ VIAL PERIprocedural Use ONLY ONE (09:47)
[2017-03-06] MEDS ORDERED: DO NOT ADM ANY ANTICOAGULANT DRUGS PRN (10:15)
[2017-03-06] MEDS: CARISOPRODOL 350 MG TAB PO PRN (11:51)
--- NOTE | 2017-03-06 11:58 | PD.ID.CON ---
History of Present Illness Service ID Consult Requested By Dr Calvo Reason for Consult R knee infx Primary Care Physician Luis Jones D.O. Diagnoses: History of Present Illness 61 yo male with remote trauma to R meniskus apparently has an issue with swelling pain, redness of his R knee He apparently had sterroid injection done about 1 week ago in [place]. Clx were obtained back then and apparently were negative He has gram + cocci on Gstain, Growing MSSA (prelim ) so far No fever , chills Review of Systems Except as stated in HPI: all other systems reviewed are Neg Past Family Social History Allergies: Coded Allergies: No Known Allergies (Verified Allergy, Unknown, 03/05/17) Past Medical History skin cancer R foot sp removal MRSA wound infx Past Surgical History R foot skin cancer surgery Active Ordered Medications Medications where reviewed in EMR Antibiotics Include: vancomycin Family History reviewed non contributory Social History No Tobacco. No ETOH. No Illicit Drugs. Physical Exam Vital Signs Vital Signs Date Time Temp Pulse Resp B/P (MAP) Pulse Ox O2 Delivery O2 Flow Rate FiO2 03/06/17 11:26 95 03/06/17 10:15 98.2 70 16 122/65 (84) 95 Room Air 03/06/17 10:00 68 16 156/75 (102) 97 Room Air 03/06/17 09:45 98.2 72 16 160/82 (108) 97 Nasal Cannula 3 03/06/17 08:00 99.6 81 19 137/82 (100) 98 03/06/17 04:00 98.0 63 20 106/70 (82) 95 03/06/17 00:00 98.0 63 20 126/73 (90) 96 03/05/17 20:00 96.9 64 20 107/71 (83) 95 03/05/17 17:00 18 03/05/17 16:00 97.1 55 16 107/64 (78) 96 03/05/17 15:11 (108) 03/05/17 12:37 57 19 136/94 (108) 99 Room Air 03/05/17 12:29 98 Room Air 03/05/17 12:29 (91) Room Air Physical Exam CONSTITUTIONAL/GENERAL: This is an adequately nourished patient, in no apparent distress. TUBES/LINES/DRAINS: SKIN: No jaundice, rashes, or lesions. Skin temperature appropriate. Not diaphoretic. HEAD: Atraumatic. Normocephalic. EYES: Pupils equal and round and reactive. Extraocular motions intact. No scleral icterus. No injection or drainage. Fundi not examined. ENT: Hearing grossly normal. Nose without bleeding or purulent drainage. Throat without visible erythema, exudates, masses, or lesions. NECK: Trachea midline. Supple, nontender. No palpable thyroid enlargement or nodularity. CARDIOVASCULAR: Regular rate and rhythm without murmurs, gallops, or rubs. No JVD. Peripheral pulses symmetric. RESPIRATORY/CHEST: Symmetric, unlabored respirations. Clear to auscultation. Breath sounds equal bilaterally. No wheezes, rales, or rhonchi. GASTROINTESTINAL: Abdomen soft, non-tender, nondistended. No hepato-splenomegaly , or palpable masses. No guarding. Bowel sounds present. GENITOURINARY: Without palpable bladder distension. MUSCULOSKELETAL: Extremities without clubbing, cyanosis, or edema. No joint tenderness or effusion noted. No calf tenderness. No mottling or clubbing. R knee with surg dressing in place , EMILY in place well healed scar on the dorsum of R foot NEUROLOGICAL: Awake and alert. Motor and sensory grossly within normal limits. Follows commands. Cognitively sharp. Moves all extremities. PSYCHIATRIC: No obvious anxiety/depression. no apparent hallucinations or other psychotic thought process. Laboratory Laboratory Tests Test 03/06/17 08:15 White Blood Count 7.9 Red Blood Count 3.69 Hemoglobin 11.5 Hematocrit 33.6 Mean Corpuscular Volume 91.0 Mean Corpuscular Hemoglobin 31.0 Mean Corpuscular Hemoglobin Concent 34.1 Red Cell Distribution Width 12.6 Platelet Count 369 Mean Platelet Volume 7.7 Neutrophils (%) (Auto) 62.6 Lymphocytes (%) (Auto) 23.1 Monocytes (%) (Auto) 10.5 Eosinophils (%) (Auto) 3.2 Basophils (%) (Auto) 0.6 Neutrophils # (Auto) 4.9 Lymphocytes # (Auto) 1.8 Monocytes # (Auto) 0.8 Eosinophils # (Auto) 0.3 Basophils # (Auto) 0.0 CBC Comment DIFF FINAL Differential Comment Blood Urea Nitrogen 13 Creatinine 0.78 Random Glucose 88 Calcium Level 8.3 Sodium Level 138 Potassium Level 3.6 Chloride Level 103 Carbon Dioxide Level 29.1 Anion Gap 6 Estimat Glomerular Filtration Rate 101 Date/Time Source Procedure Growth Status 03/05/17 11:40 Blood Peripheral Aerobic Blood Culture - Preliminary NO GROWTH IN 1 DAY Resulted 03/05/17 11:40 Blood Peripheral Anaerobic Blood Culture - Preliminary NO GROWTH IN 1 DAY Resulted 03/05/17 11:30 Fluid Synovial Fluid Gram Stain - Final Resulted 03/05/17 11:30 Fluid Synovial Fluid Body Fluid Culture Pending Resulted 03/06/17 09:31 Wound Knee Fungal Smear Pending Received 03/06/17 09:31 Wound Knee Fungal Culture Pending Received Result Diagram: 03/06/17 0815 03/06/17 0815 Imaging Last Impressions Chest X-Ray 03/05/17 9189 Signed Impressions: Service Date/Time: Sunday, March 05, 2017 14:33 - CONCLUSION: No acute disease. Leoncio Cleveland MD FACR Assessment and Plan Assessment and Plan [place] knee septi arthritis, MSSA (prelim) IV abx x 4 weeks from surgery will d/c on vanco If confirmed MSSA will need to be switched to cefazoline 2 gm iv q 8 hrs for the same duration of treatment OK to dc home once HHC arranged Discussed Condition With Lubna Kang case mngr Nadeen Márquez MD Mar 06, 2017 11:58
--- NOTE | 2017-03-06 13:23 | HHI.DCPOC ---
Discharge Care Plan Diagnosis: (1) Septic arthritis Goals to Promote Your Health * To prevent worsening of your condition and complications * To maintain your health at the optimal level Directions to Meet Your Goals Take your medications as prescribed Follow your dietary instruction Follow activity as directed Keep your appointments as scheduled Take your immunizations and boosters as scheduled If your symptoms worsen call your PCP, if no PCP go to Urgent Care Center or Emergency Room Smoking is Dangerous to Your Health. Avoid second hand smoke Call the 24-hour hour crisis hotline for domestic abuse at Kay Mejia Mar 06, 2017 13:23 Silver Bishop DO Mar 08, 2017 14:03
--- NOTE | 2017-03-06 13:28 | HHI.DS ---
Discharge Summary Admission Date Mar 05, 2017 at 14:10 Discharge Date: Mar 07, 2017 Admitting Diagnosis Septic Arthritis R Knee (1) Septic arthritis ICD Codes: M00.9 - Pyogenic arthritis, unspecified Status: Acute Consultants Dr. Cedillo, orthopedic surgery Dr. Márquez, ID Procedures I&D right knee with Dr. Cedillo 03/06 Brief History This is a 61-year-old male patient with past medical history which includes borderline hypertension not on medication, obstructive and obstructive sleep apnea does use CPAP at night. Patient has an extensive history regarding his right knee. All meniscal tear right knee with repair approximately 18 months ago. Patient then had cortisone injection with Dr. Duron approximally 4 months ago. Approximately 4 months ago patient had contusion after kneeling on a rock in [facility] diagnosed with patella bursitis. Then after windsurfing in [place] patient noticed his right knee became swollen and painful he was treated for hospital-acquired with a aspirated fluid was serosanguineous at that time he was discharged home with ibuprofen diagnosed with effusion. Patient was also given a cortisone injection while in [place]. Patient returned to the hospital today due to continued edema and pain in the right knee. Aspiration of joint fluid reveals 64,000 white blood cells, 3000 red blood cells 100 neutrophils. Consistent with septic arthritis. Patient has been started on vancomycin and Rocephin in the emergency department. Patient denies fevers chills nausea vomiting diarrhea constipation chest pain or shortness of breath. CBC/BMP: 03/06/17 0815 03/06/17 0815 Significant Findings Laboratory Tests Test 03/05/17 11:30 03/05/17 11:40 03/06/17 08:15 Urine Mucus FEW /lpf (OCC) Synovial Fluid Appearance MARKED (CLEAR) Synovial Fluid WBC 88921 /MM3 (0-200) Synovial Fluid RBC 3000 /MM3 (0-0) Synovial Fluid Neutrophils 100 % (0-25) Red Blood Count 4.02 MIL/MM3 (4.50-5.90) 3.69 MIL/MM3 (4.50-5.90) Hemoglobin 12.7 GM/DL (13.0-17.0) 11.5 GM/DL (13.0-17.0) Hematocrit 36.5 % (39.0-51.0) 33.6 % (39.0-51.0) Erythrocyte Sedimentation Rate 65 mm/hr (0-20) Blood Urea Nitrogen 23 MG/DL (7-18) Albumin 3.2 GM/DL (3.4-5.0) Estimat Glomerular Filtration Rate 84 ML/MIN (>89) Monocytes (%) (Auto) 10.5 % (0.0-8.0) Calcium Level 8.3 MG/DL (8.5-10.1) Imaging Last Impressions Chest X-Ray 03/05/17 1359 Signed Impressions: Service Date/Time: Sunday, March 05, 2017 14:33 - CONCLUSION: No acute disease. Leoncio Cleveland MD FACR PE at Discharge GENERAL: This is a well-nourished, well-developed patient, in no apparent distress. SKIN: post-op dressing R knee dry and intact CARDIOVASCULAR: Regular rate and rhythm RESPIRATORY: Clear to auscultation. Breath sounds equal bilaterally. GASTROINTESTINAL: Abdomen soft, non-tender, nondistended. MUSCULOSKELETAL: No calf tenderness. Negative Homans sign bilaterally. NEUROLOGICAL: Awake and alert. No focal deficits appreciated. Motor and sensory grossly within normal limits. Five out of 5 muscle strength in all muscle groups. Normal speech. Hospital Course Septic arthritis -Patient was in his normal state of health until approximately a week ago while he was in [facility]. After [facility] patient noticed his right knee became swollen and painful he was treated in [facility] with aspiration of serosanguineous fluid then discharged home with ibuprofen diagnosed with joint effusion. Patient returned to the hospital today due to continued edema and pain in the right knee. -Aspiration of joint fluid reveals 64,000 white blood cells, 3000 red blood cells 100 neutrophils. Consistent with septic arthritis. -Patient has been started on vancomycin (with pharmacy consult) and Rocephin in the emergency department. - patient does not want hydrocodone for pain reports Soma works well for him -- Orthopedic surgery consulted -Patient s/p right knee I&D 03/[address] Cedillo- cleared for DC home with IV abx and [facility] for wound care - Consult ID, appreciate input-> IV abx per ID - discussed case with Dr. Márquez and PCP Dr. Jones. PCP will follow cultures and contact ID Dr. Márquez with results on Wednesday03/06/17. - patient to follow up with ID Dr. Conner - Patient cautioned not to take soma and hydrocodone together. He verbalized understanding SCDs for DVT prophylaxis Pt Condition on Discharge: Stable Discharge Disposition: Disch w/ Home Health Serv Discharge Instructions DIET: Follow Instructions for: As Tolerated, No Restrictions Activities you can perform: See Additionl Instruction Other Activity Instructions: Per orthopedic surgery: -WBAT -daily dressing changes POD 2 -DC Drain POD 3 Follow up Referrals: Infectious Disease - [address] Conner Orthopedics - [facility] Weeks [facility] with Yonas Cedillo MD PCP Follow-up - [address] Jones New Medications: Hydrocodone-Acetaminophen (Paisley) 5 Mg-325 Mg Tab 1 TAB PO Q4H PRN for PAIN, #60 TAB 0 Refills Continued Medications: Carisoprodol (Soma) 350 Mg Tab 350 MG PO HS PRN for pain/sleep, TAB 0 Refills Additional Information IV abx per Kay Birch Mar 06, 2017 13:28 Silver Bishop DO Mar 08, 2017 14:04
[2017-03-06] MEDS ORDERED: SOMA350T PO (13:29)
--- NOTE | 2017-03-06 13:59 | HHI.FF ---
Infusion Therapy Location of Infusion Therapy: Home Health Care IV Infusion Order Patient Information Patient Weight 94 kg Diagnosis: Coded Allergies: No Known Allergies (Verified Allergy, Unknown, 03/05/17) Administer Medication Vancomycin 1.5 grams IV Start Treatment: Mar 06, 2017 Stop Treatment: Apr 02, 2017 Additional Information Venous access: PICC Line Additional Instructions [x] Peripheral flush and dressing changes per protocol [x] Implanted port and central airline customer service agent: * Implanted port: 10 ml Normal Saline followed by 5 ml Heparin 100 units/ml Heparin flush after each use and monthly to maintain. [] May leave port accessed during therapy. [] May leave peripheral site accessed for duration of therapy. [x] If patient has SOB or respiratory distress, check oxygen saturation. If less than 90% or clinical signs of respiratory distress, administer oxygen at 2 L/min. via nasal cannula and notify physician. [x] Anaphylaxis/Reaction orders: * Stop infusion. * Keep IV line open with saline flush. * Notify physician. * Monitor vital signs every 15 minutes until symptoms resolve. * Check Oxygen saturation; Oxygen at 2 L/min. via nasal cannula if less than 90% or clinical signs of respiratory distress. * Administer diphenhydramine (Benadryl) 25 mg IV STAT, (unless patient has received as pre-med). May repeat once, if necessary. * Solu-Cortef 250 mg IVP over 30-60 seconds, use 100 mg vials for each dissolution. * Epinephrine (1mg/1 ml) 0.3 mg subcutaneously or IVP now with any signs of respiratory distress. * Check with physician for new additional pre-med orders if patient is re- challenged or re-treated. [x] May remove PICC line when treatment complete, after confirming with Physician. [x] If the patient is admitted to the hospital, the ED, or transferred via EVAC , complete transfer form including medication reconciliation order sheet. Laboratory Tests Weekly Labs: CBC w/diff, Creatinine, SED Rate, Vancomycin Trough Nadeen Márquez MD Mar 06, 2017 13:59
--- NOTE | 2017-03-06 14:44 | HHI.PR ---
Subjective Remarks Patient s/p I&D right knee today with Dr. Cedillo Pain is not controlled Objective Vitals Vital Signs Date Time Temp Pulse Resp B/P (MAP) Pulse Ox O2 Delivery O2 Flow Rate FiO2 03/06/17 12:00 97.7 84 18 128/73 (91) 99 03/06/17 11:26 95 03/06/17 10:15 98.2 70 16 122/65 (84) 95 Room Air 03/06/17 10:00 68 16 156/75 (102) 97 Room Air 03/06/17 09:45 98.2 72 16 160/82 (108) 97 Nasal Cannula 3 03/06/17 08:00 99.6 81 19 137/82 (100) 98 03/06/17 04:00 98.0 63 20 106/70 (82) 95 03/06/17 00:00 98.0 63 20 126/73 (90) 96 03/05/17 20:00 96.9 64 20 107/71 (83) 95 03/05/17 17:00 18 03/05/17 16:00 97.1 55 16 107/64 (78) 96 03/05/17 15:11 (108) 03/06/17 03/06/17 03/07/17 15:00 23:00 07:00 Intake Total 300 ml Output Total 50 ml Balance 250 ml IV Total 300 ml Output Estimated Blood Loss 50 ml Result Diagram: 03/06/17 0815 03/06/17 0815 Other Results Laboratory Tests Test 03/05/17 11:30 03/05/17 11:40 03/06/17 08:15 Urine Color YELLOW Urine Turbidity CLEAR Urine pH 5.5 Urine Specific [place] 1.021 Urine Protein TRACE mg/dL Urine Glucose (UA) NEG mg/dL Urine Ketones NEG mg/dL Urine Occult Blood NEG Urine Nitrite NEG Urine Bilirubin NEG Urine Urobilinogen LESS THAN 2.0 MG/DL Urine Leukocyte Esterase NEG Urine WBC 3 /hpf Urine Mucus FEW /lpf Microscopic Urinalysis Comment CATH-CULT NOT IND Synovial Fluid Color YELLOW Synovial Fluid Appearance MARKED Synovial Fluid WBC 80191 /MM3 Synovial Fluid RBC 3000 /MM3 Synovial Fluid Neutrophils 100 % Synovial Fluid Lymphocytes 0 % White Blood Count 8.2 TH/MM3 7.9 TH/MM3 Red Blood Count 4.02 MIL/MM3 3.69 MIL/MM3 Hemoglobin 12.7 GM/DL 11.5 GM/DL Hematocrit 36.5 % 33.6 % Mean Corpuscular Volume 90.6 FL 91.0 FL Mean Corpuscular Hemoglobin 31.5 PG 31.0 PG Mean Corpuscular Hemoglobin Concent 34.7 % 34.1 % Red Cell Distribution Width 12.5 % 12.6 % Platelet Count 423 TH/MM3 369 TH/MM3 Mean Platelet Volume 7.8 FL 7.7 FL Neutrophils (%) (Auto) 60.2 % 62.6 % Lymphocytes (%) (Auto) 27.8 % 23.1 % Monocytes (%) (Auto) 7.8 % 10.5 % Eosinophils (%) (Auto) 3.0 % 3.2 % Basophils (%) (Auto) 1.2 % 0.6 % Neutrophils # (Auto) 4.9 TH/MM3 4.9 TH/MM3 Lymphocytes # (Auto) 2.3 TH/MM3 1.8 TH/MM3 Monocytes # (Auto) 0.6 TH/MM3 0.8 TH/MM3 Eosinophils # (Auto) 0.2 TH/MM3 0.3 TH/MM3 Basophils # (Auto) 0.1 TH/MM3 0.0 TH/MM3 CBC Comment DIFF FINAL DIFF FINAL Differential Comment Erythrocyte Sedimentation Rate 65 mm/hr Blood Urea Nitrogen 23 MG/DL 13 MG/DL Creatinine 0.92 MG/DL 0.78 MG/DL Random Glucose 95 MG/DL 88 MG/DL Total Protein 7.4 GM/DL Albumin 3.2 GM/DL Calcium Level 8.9 MG/DL 8.3 MG/DL Alkaline Phosphatase 101 U/L Aspartate Amino Transf (AST/SGOT) 34 U/L Alanine Aminotransferase (ALT/SGPT) 60 U/L Total Bilirubin 0.4 MG/DL Sodium Level 136 MEQ/L 138 MEQ/L Potassium Level 3.7 MEQ/L 3.6 MEQ/L Chloride Level 101 MEQ/L 103 MEQ/L Carbon Dioxide Level 28.9 MEQ/L 29.1 MEQ/L Anion Gap 6 MEQ/L 6 MEQ/L Estimat Glomerular Filtration Rate 84 ML/MIN 101 ML/MIN Lactic Acid Level 0.9 mmol/L Imaging Last Impressions Chest X-Ray 03/05/17 3499 Signed Impressions: Service Date/Time: Sunday, March 05, 2017 14:33 - CONCLUSION: No acute disease. Leoncio Cleveland MD FACR Objective Remarks GENERAL: This is a well-nourished, well-developed patient, in no apparent distress. SKIN: post-op dressing R knee dry and intact CARDIOVASCULAR: Regular rate and rhythm RESPIRATORY: Clear to auscultation. Breath sounds equal bilaterally. GASTROINTESTINAL: Abdomen soft, non-tender, nondistended. MUSCULOSKELETAL: No calf tenderness. Negative Homans sign bilaterally. NEUROLOGICAL: Awake and alert. No focal deficits appreciated. Motor and sensory grossly within normal limits. Five out of 5 muscle strength in all muscle groups. Normal speech. Procedures I&D right knee with Dr. Cedillo 03/06 A/P Problem List: (1) Septic arthritis ICD Codes: M00.9 - Pyogenic arthritis, unspecified Status: Acute Plan: Septic arthritis -Patient was in his normal state of health until approximately a week ago while he was in [facility]. [facility] noticed his right knee became swollen and painful he was treated in [facility] with aspiration of serosanguineous fluid then discharged home with ibuprofen diagnosed with joint effusion. Patient returned to the hospital today due to continued edema and pain in the right knee. -Aspiration of joint fluid reveals 64,000 white blood cells, 3000 red blood cells 100 neutrophils. Consistent with septic arthritis. -Patient has been started on vancomycin (with pharmacy consult) and Rocephin in the emergency department. - patient does not want hydrocodone for pain reports Soma works well for him -- Orthopedic surgery consulted -Patient s/p right knee I&D 03/[address] Cedillo- cleared for DC home with IV abx and [facility] for wound care - Consult ID, appreciate input-> IV abx per ID - discussed case with Dr. Márquez and PCP Dr. Jones. PCP will follow cultures and contact ID Dr. Márquez with results on Wednesday03/06/17. - patient to follow up with ID Dr. Conner -patient cleared for DC after IV abx arranged - unable to DC today due to uncontrolled pain. Dr. Bishop has adjusted pain medication - bowel regiment SCDs for DVT prophylaxis Assessment and Plan Patient examined. Assessment and plan formulated with Kay Mejia PA-C. I agree with the above. Kay Mejia Mar 06, 2017 14:43 Silver Bishop DO Mar 08, 2017 14:01
[2017-03-06] MEDS ORDERED: MAGNESIUM HYDROXIDE SUSP 30 ML CUP PO PRN (14:45)
--- NOTE | 2017-03-06 14:55 | HHI.FF ---
Infusion Therapy Location of Infusion Therapy: Home Health Care IV Infusion Order Patient Information Patient Weight 94 kg Diagnosis: Coded Allergies: No Known Allergies (Verified Allergy, Unknown, 03/05/17) Administer Medication Cefazolin 2 grams IV q 8 hours Start Treatment: Mar 06, 2017 Stop Treatment: Apr 01, 2017 Additional Information Venous access: PICC Line Additional Instructions [x] Peripheral flush and dressing changes per protocol [x] Implanted port and central cell reliner: * Implanted port: 10 ml Normal Saline followed by 5 ml Heparin 100 units/ml Heparin flush after each use and monthly to maintain. [] May leave port accessed during therapy. [] May leave peripheral site accessed for duration of therapy. [x] If patient has SOB or respiratory distress, check oxygen saturation. If less than 90% or clinical signs of respiratory distress, administer oxygen at 2 L/min. via nasal cannula and notify physician. [x] Anaphylaxis/Reaction orders: * Stop infusion. * Keep IV line open with saline flush. * Notify physician. * Monitor vital signs every 15 minutes until symptoms resolve. * Check Oxygen saturation; Oxygen at 2 L/min. via nasal cannula if less than 90% or clinical signs of respiratory distress. * Administer diphenhydramine (Benadryl) 25 mg IV STAT, (unless patient has received as pre-med). May repeat once, if necessary. * Solu-Cortef 250 mg IVP over 30-60 seconds, use 100 mg vials for each dissolution. * Epinephrine (1mg/1 ml) 0.3 mg subcutaneously or IVP now with any signs of respiratory distress. * Check with physician for new additional pre-med orders if patient is re- challenged or re-treated. [x] May remove PICC line when treatment complete, after confirming with Physician. [x] If the patient is admitted to the hospital, the ED, or transferred via EVAC , complete transfer form including medication reconciliation order sheet. Laboratory Tests Weekly Labs: CBC w/diff, Creatinine, SED Rate Nadeen Márquez MD Mar 06, 2017 14:55
[2017-03-06] MEDS ORDERED: CEFA2SOL IV (14:56)
[2017-03-06] MEDS ORDERED: SOLU250I IV PUSH (14:56)
[2017-03-06] MEDS ORDERED: EPIN1INJ21 SQ (14:56)
[2017-03-06] MEDS ORDERED: EPIN1INJ21 IV PUSH (14:56)
[2017-03-06] MEDS ORDERED: DIATRIZOATE MEGLUM/DIATRIZOATE SOD 9 ML CUP PO ONE (15:50)
[2017-03-06] MEDS: DOCUSATE SODIUM 100 MG CAP PO SCH ×2 (16:49→20:25)
--- NOTE | 2017-03-06 16:51 | RADRPT ---
EXAM DATE/TIME: 03/06/2017 16:05 [place] COMPARISON: CHEST SINGLE AP, March 05, 2017, 14:33. INDICATIONS : Post right PICC line placement. MEDICAL HISTORY : None. SURGICAL HISTORY : Umbilical hernia repair. Right knee arthroscopy. ENCOUNTER: Initial ACUITY: 1 day PAIN SCORE: 0/10 LOCATION: Bilateral chest FINDINGS: Single AP view of the chest. Right-sided PICC line in place with the tip in the distal SVC. No eviden ce of pneumothorax. Lungs clear. CONCLUSION: Right-sided PICC line in place with tip in the distal SVC. Alfonso Solomon MD on March 06, 2017 at 16:50 Board Certified Radiologist. This report was verified electronically.
[2017-03-07] VITALS: BP 110/61; PULSE 69; RESP 20; TEMP 96.9; O2SAT 95
[2017-03-07] MEDS ORDERED: PHARMACY ORDERED LAB ONE (00:45)
[2017-03-07] MEDS: VANCOMYCIN 1,500 MG/NS 500 ML IV SCH ×4 (00:45→11:20)
[2017-03-07] MEDS: HYDROmorphone HCL PF 2 MG/ML VIAL IV PRN ×2 (00:48→04:09)
[2017-03-07] MEDS: ACETAMINOPHEN/HYDROcodone 325 MG/10 MG TAB PO PRN ×3 (07:08→23:23)
[2017-03-07] MEDS: DOCUSATE SODIUM 100 MG CAP PO SCH ×2 (07:36→20:49)
[2017-03-07] MEDS: SODIUM CHLORIDE 0.9% FLUSH 10 ML FLUSH IV FLUSH SCH ×2 (07:38→20:49)
[2017-03-07 08:00] VITALS: BP 115/64; PULSE 61; RESP 16; TEMP 98.2; O2SAT 97
--- NOTE | 2017-03-07 09:10 | PD.ORT.PN ---
Subjective Subjective Remarks No complaints. Laying in bed comfortably. Objective Vitals Vital Signs Date Time Temp Pulse Resp B/P (MAP) Pulse Ox O2 Delivery O2 Flow Rate FiO2 03/07/17 08:00 98.2 61 16 115/64 (81) 97 03/07/17 00:00 96.9 69 20 110/61 (77) 95 03/06/17 20:00 98.3 65 20 105/60 (75) 93 03/06/17 16:00 97.7 88 18 129/74 (92) 100 03/06/17 12:00 97.7 84 18 128/73 (91) 99 03/06/17 11:26 95 03/06/17 10:15 98.2 70 16 122/65 (84) 95 Room Air 03/06/17 10:00 68 16 156/75 (102) 97 Room Air 03/06/17 09:45 98.2 72 16 160/82 (108) 97 Nasal Cannula 3 I/O 03/06/17 03/06/17 03/06/17 03/07/17 03/07/17 03/07/17 07:00 15:00 23:00 07:00 15:00 23:00 Intake Total 515 ml 400 ml 635 ml 875 ml Output Total 50 ml 420 ml 455 ml Balance 515 ml 350 ml 215 ml 420 ml Intake Oral 120 ml 360 ml IV Total 515 ml 400 ml 515 ml 515 ml Output Urine Total 400 ml 450 ml Drainage Total 20 ml 5 ml Estimated Blood Loss 50 ml # Bowel Movements 0 0 Result Diagram: 03/06/17 0815 03/06/17 0815 Imaging Last 24 hours Impressions Chest X-Ray 03/05/17 1359 Signed Impressions: Service Date/Time: Sunday, March 05, 2017 14:33 - CONCLUSION: No acute disease. Leoncio Cleveland MD FACR Objective Remarks RLE: swelling and erythema. pain with movement Drain in place. No drainage. Dressing dry Assessment & Plan Ortho Post Op Day #: 1 Problem List: Assessment and Plan Septic arthritis of right knee. Surgery: I&D of right knee PLAN: Weightbearing as tolerated. DC drain on Wednesday. Antibiotics per sensitivity. PICC line in place. Discharge to home when arrangements made for IV antibiotics. Follow-up with Dr. Calvo in 2 weeks. Daily dressing change. [place] for pain. DVT prophylaxis per medical team if felt necessary Williams Cox MD Mar 07, 2017 09:10
[2017-03-07] MEDS ORDERED: fentaNYL 25 MCG/HR PATCH T-DERMAL SCH (10:00)
[2017-03-07] MEDS ORDERED: REMOVE OLD PATCH T-DERMAL SCH (10:00)
[2017-03-07 12:00] VITALS: BP 109/64; PULSE 62; RESP 16; TEMP 97.5; O2SAT 97
--- NOTE | 2017-03-07 13:20 | HHI.PR ---
Subjective Remarks Patient c/o pain in the knee- not controlled with PO medication Objective Vitals Vital Signs Date Time Temp Pulse Resp B/P (MAP) Pulse Ox O2 Delivery O2 Flow Rate FiO2 03/07/17 12:00 97.5 62 16 109/64 (79) 97 03/07/17 08:00 98.2 61 16 115/64 (81) 97 03/07/17 00:00 96.9 69 20 110/61 (77) 95 03/06/17 20:00 98.3 65 20 105/60 (75) 93 03/06/17 16:00 97.7 88 18 129/74 (92) 100 Result Diagram: 03/06/17 0815 03/06/17 0815 Other Results Laboratory Tests Test 03/05/17 11:30 03/05/17 11:40 03/06/17 08:15 03/07/17 00:45 Urine Color YELLOW Urine Turbidity CLEAR Urine pH 5.5 Urine Specific [place] 1.021 Urine Protein TRACE mg/dL Urine Glucose (UA) NEG mg/dL Urine Ketones NEG mg/dL Urine Occult Blood NEG Urine Nitrite NEG Urine Bilirubin NEG Urine Urobilinogen LESS THAN 2.0 MG/DL Urine Leukocyte Esterase NEG Urine WBC 3 /hpf Urine Mucus FEW /lpf Microscopic Urinalysis Comment CATH-CULT NOT IND Synovial Fluid Color YELLOW Synovial Fluid Appearance MARKED Synovial Fluid WBC 90137 /MM3 Synovial Fluid RBC 3000 /MM3 Synovial Fluid Neutrophils 100 % Synovial Fluid Lymphocytes 0 % Synovial Fluid Glucose 8 mg/dL Synovial Fluid Total Protein 4.7 g/dL White Blood Count 8.2 TH/MM3 7.9 TH/MM3 Red Blood Count 4.02 MIL/MM3 3.69 MIL/MM3 Hemoglobin 12.7 GM/DL 11.5 GM/DL Hematocrit 36.5 % 33.6 % Mean Corpuscular Volume 90.6 FL 91.0 FL Mean Corpuscular Hemoglobin 31.5 PG 31.0 PG Mean Corpuscular Hemoglobin Concent 34.7 % 34.1 % Red Cell Distribution Width 12.5 % 12.6 % Platelet Count 423 TH/MM3 369 TH/MM3 Mean Platelet Volume 7.8 FL 7.7 FL Neutrophils (%) (Auto) 60.2 % 62.6 % Lymphocytes (%) (Auto) 27.8 % 23.1 % Monocytes (%) (Auto) 7.8 % 10.5 % Eosinophils (%) (Auto) 3.0 % 3.2 % Basophils (%) (Auto) 1.2 % 0.6 % Neutrophils # (Auto) 4.9 TH/MM3 4.9 TH/MM3 Lymphocytes # (Auto) 2.3 TH/MM3 1.8 TH/MM3 Monocytes # (Auto) 0.6 TH/MM3 0.8 TH/MM3 Eosinophils # (Auto) 0.2 TH/MM3 0.3 TH/MM3 Basophils # (Auto) 0.1 TH/MM3 0.0 TH/MM3 CBC Comment DIFF FINAL DIFF FINAL Differential Comment Erythrocyte Sedimentation Rate 65 mm/hr Blood Urea Nitrogen 23 MG/DL 13 MG/DL Creatinine 0.92 MG/DL 0.78 MG/DL Random Glucose 95 MG/DL 88 MG/DL Total Protein 7.4 GM/DL Albumin 3.2 GM/DL Calcium Level 8.9 MG/DL 8.3 MG/DL Alkaline Phosphatase 101 U/L Aspartate Amino Transf (AST/SGOT) 34 U/L Alanine Aminotransferase (ALT/SGPT) 60 U/L Total Bilirubin 0.4 MG/DL Sodium Level 136 MEQ/L 138 MEQ/L Potassium Level 3.7 MEQ/L 3.6 MEQ/L Chloride Level 101 MEQ/L 103 MEQ/L Carbon Dioxide Level 28.9 MEQ/L 29.1 MEQ/L Anion Gap 6 MEQ/L 6 MEQ/L Estimat Glomerular Filtration Rate 84 ML/MIN 101 ML/MIN Lactic Acid Level 0.9 mmol/L Vancomycin Level Trough 7.4 MCG/ML Imaging Last Impressions Chest X-Ray 03/05/17 1359 Signed Impressions: Service Date/Time: Sunday, March 05, 2017 14:33 - CONCLUSION: No acute disease. Leoncio Cleveland MD FACR Objective Remarks GENERAL: This is a well-nourished, well-developed patient, in no apparent distress. SKIN: post-op dressing R knee dry and intact CARDIOVASCULAR: Regular rate and rhythm RESPIRATORY: Clear to auscultation. Breath sounds equal bilaterally. GASTROINTESTINAL: Abdomen soft, non-tender, nondistended. MUSCULOSKELETAL: No calf tenderness. Negative Homans sign bilaterally. NEUROLOGICAL: Awake and alert. No focal deficits appreciated. Motor and sensory grossly within normal limits. Five out of 5 muscle strength in all muscle groups. Normal speech. Procedures I&D right knee with Dr. Cedillo 03/06 A/P Problem List: (1) Septic arthritis ICD Codes: M00.9 - Pyogenic arthritis, unspecified Status: Acute Plan: Septic arthritis -Patient was in his normal state of health until approximately a week ago while he was in [facility]. After windsurfing patient noticed his right knee became swollen and painful he was treated in [facility] with aspiration of serosanguineous fluid then discharged home with ibuprofen diagnosed with joint effusion. Patient returned to the hospital today due to continued edema and pain in the right knee. -Aspiration of joint fluid reveals 64,000 white blood cells, 3000 red blood cells 100 neutrophils. Consistent with septic arthritis. -Patient has been started on vancomycin (with pharmacy consult) and Rocephin in the emergency department. - patient does not want hydrocodone for pain reports Soma works well for him -- Orthopedic surgery consulted -Patient s/p right knee I&D 03/[address] Cedillo- cleared for DC home with IV abx and [facility] for wound care - wound culture from the knee results showing Staphylococcus Aureus - synovial fluid from the knee results showing Staphylococcus Aureus - Consult ID, appreciate input-> IV abx per ID patient currently on Vancomycin - PICC line placed 03/06 - discussed case with Dr. Márquez and PCP Dr. Jones. PCP will follow cultures and contact ID Dr. Márquez with results on Wednesday03/06/17. - patient to follow up with ID Dr. Conner -patient cleared for DC after IV abx arranged - unable to DC today due to uncontrolled pain. - will continue [place] 10 mg PO PRN - will add fentanyl patch (03/07) - Dilaudid IV PRN for breakthrough pain - bowel regiment SCDs for DVT prophylaxis Assessment and Plan Patient examined. Assessment and plan formulated with Kay Mejia PA-C. I agree with the above. Pt will need continued hospitalization for IV antibiotics, may need medication change depending on intraoperative cultures. Pt will need improved pain control. Pt started on duragesic 25mcg prn dilaudid/prn Kay Lozano Mar 07, 2017 13:20 Silver Bishop DO Mar 08, 2017 14:02
[2017-03-07] MEDS: HYDROmorphone HCL PF 2 MG/ML VIAL IV PUSH PRN ×2 (15:12→20:49)
[2017-03-07 16:00] VITALS: BP 106/65; PULSE 58; RESP 16; TEMP 98.5; O2SAT 91
[2017-03-07 20:00] VITALS: BP 111/64; PULSE 68; RESP 20; TEMP 98.1; O2SAT 98
[2017-03-07 23:55] VITALS: BP 112/72; PULSE 70; RESP 20; TEMP 98.3; O2SAT 94
[2017-03-08] MEDS: VANCOMYCIN 1,500 MG/NS 500 ML IV SCH ×2 (00:54)
[2017-03-08] MEDS: HYDROmorphone HCL PF 2 MG/ML VIAL IV PUSH PRN ×3 (02:23→20:32)
[2017-03-08] MEDS: SODIUM CHLORIDE 0.9% FLUSH 10 ML FLUSH IV FLUSH PRN ×2 (02:23→07:16)
[2017-03-08] MEDS: ACETAMINOPHEN/HYDROcodone 325 MG/10 MG TAB PO PRN ×2 (04:38→09:48)
[2017-03-08 07:38] VITALS: BP 109/60; PULSE 57; RESP 19; TEMP 96.9; O2SAT 97
[2017-03-08] MEDS: DOCUSATE SODIUM 100 MG CAP PO SCH ×2 (08:22→20:32)
[2017-03-08] MEDS: SODIUM CHLORIDE 0.9% FLUSH 10 ML FLUSH IV FLUSH SCH ×2 (08:23→20:33)
--- NOTE | 2017-03-08 10:13 | EKG ---
Date Performed: 03/05/2017 Time Performed: 14:50:06 PTAGE: 61 years EKG: SINUS BRADYCARDIA BORDERLINE ECG PREVIOUS TRACING : 11/13/2015 09.42 Compared to prior tracing no significant change DOCTOR: Veda Underwood Interpretating Date/Time 03/08/2017 10:11:17
[2017-03-08 12:00] VITALS: BP 117/65; PULSE 66; RESP 20; TEMP 96.9; O2SAT 95
[2017-03-08] MEDS ORDERED: HYDROmorphone HCL 2 MG TAB PO PRN (12:15)
[2017-03-08] MEDS ORDERED: PHARMACY ORDERED LAB ONE (12:45)
--- NOTE | 2017-03-08 15:23 | PD.ORT.PN ---
Subjective Subjective Remarks afebrile. no CP/SOB Objective Vitals Vital Signs Date Time Temp Pulse Resp B/P (MAP) Pulse Ox O2 Delivery O2 Flow Rate FiO2 03/08/17 13:55 17 03/08/17 12:00 96.9 66 20 117/65 (82) 95 03/08/17 10:46 18 03/08/17 08:19 17 03/08/17 07:38 96.9 57 19 109/60 (76) 97 03/07/17 23:55 98.3 70 20 112/72 (85) 94 03/07/17 20:00 98.1 68 20 111/64 (80) 98 03/07/17 16:00 98.5 58 16 106/65 (79) 91 I/O 03/07/17 03/07/17 03/07/17 03/08/17 03/08/17 03/08/17 07:00 15:00 23:00 07:00 15:00 23:00 Intake Total 875 ml 1410 ml 515 ml 360 ml 220 ml Output Total 455 ml 1200 ml 10 ml 1710 ml 10 ml Balance 420 ml 210 ml 505 ml -1350 ml 220 ml -10 ml Intake Oral 360 ml 1410 ml 360 ml 120 ml IV Total 515 ml 515 ml 100 ml Output Urine Total 450 ml 1200 ml 1700 ml Drainage Total 5 ml 10 ml 10 ml 10 ml # Bowel Movements 0 0 Result Diagram: 03/06/1715 03/06/1715 Imaging Last 24 hours Impressions Chest X-Ray 03/05/17 1359 Signed Impressions: Service Date/Time: Sunday, March 05, 2017 14:33 - CONCLUSION: No acute disease. Leoncio Cleveland MD FACR Objective Remarks RLE: swelling and erythema. pain with movement Drain in place. No drainage. Dressing dry Assessment & Plan Assessment and Plan POD 2 - I&D of right knee PLAN: Weightbearing as tolerated. drain removed Antibiotics per ID PICC line in place. Discharge to home when arrangements made for IV antibiotics. Follow-up with Dr. Calvo in 2 weeks. Daily dressing change. [place] for pain. DVT prophylaxis per medical team if felt necessary Haroldo Adamson Jr., MD Mar 08, 2017 15:23
[2017-03-08 16:00] VITALS: BP 112/60; PULSE 55; RESP 19; TEMP 96.9; O2SAT 97
--- NOTE | 2017-03-08 16:43 | HHI.PR ---
Subjective Remarks says the jacobson is making him sick is waiting for drain removal Objective Vitals nad heart reg lung cta abd /snt ext right knee bandaged. melo drain Vital Signs Date Time Temp Pulse Resp B/P (MAP) Pulse Ox O2 Delivery O2 Flow Rate FiO2 03/08/17 16:00 96.9 55 19 112/60 (77) 97 03/08/17 13:55 17 03/08/17 12:00 96.9 66 20 117/65 (82) 95 03/08/17 10:46 18 03/08/17 08:19 17 03/08/17 07:38 96.9 57 19 109/60 (76) 97 03/07/17 23:55 98.3 70 20 112/72 (85) 94 03/07/17 20:00 98.1 68 20 111/64 (80) 98 03/08/17 03/08/17 03/09/17 15:00 23:00 07:00 Intake Total 220 ml Output Total 10 ml Balance 220 ml -10 ml Intake Oral 120 ml IV Total 100 ml Drainage Total 10 ml Result Diagram: 03/06/17 0815 03/06/17 0815 Imaging Last Impressions Chest X-Ray 03/05/17 1359 Signed Impressions: Service Date/Time: Sunday, March 05, 2017 14:33 - CONCLUSION: No acute disease. Leoncio Cleveland MD FACR Procedures I&D right knee with Dr. Cedillo 03/06 A/P Problem List: (1) Septic arthritis ICD Codes: M00.9 - Pyogenic arthritis, unspecified Status: Acute Plan: Septic arthritis -Patient was in his normal state of health until approximately a week ago while he was in [facility]. After [facility] patient noticed his right knee became swollen and painful he was treated in [facility] with aspiration of serosanguineous fluid then discharged home with ibuprofen diagnosed with joint effusion. Patient returned to the hospital today due to continued edema and pain in the right knee. -Aspiration of joint fluid reveals 64,000 white blood cells, 3000 red blood cells 100 neutrophils. Consistent with septic arthritis. -Patient has been started on vancomycin (with pharmacy consult) and Rocephin in the emergency department. - patient does not want hydrocodone for pain reports Soma works well for him -- Orthopedic surgery consulted -Patient s/p right knee I&D 12/[address] Cedillo- cleared for DC home with IV abx and [facility] for wound care - wound culture from the knee results showing Staphylococcus Aureus - synovial fluid from the knee results showing Staphylococcus Aureus - - PICC line placed 03/06 -discussed with dr Márquez...plan cefazolin until 04/01..f/u fhcp . -drain out today -adjusting pain control. uncontrolled pain an issue and now says jonathan causing nausea..wanted to try po dilaudid and now percocet instead. plan is for d/c home tomorrow with [facility] and iv abx and pain control. Marc Jean MD Mar 08, 2017 16:43
[2017-03-08 20:12] VITALS: BP 116/71; PULSE 57; RESP 20; TEMP 98.7; O2SAT 95
[2017-03-08] MEDS: oxyCODONE/ACETAMINOPHEN 10 MG/325 MG TAB PO PRN (22:28)
[2017-03-09 00:07] VITALS: BP 118/67; PULSE 64; RESP 20; TEMP 99.4; O2SAT 93
[2017-03-09] MEDS: oxyCODONE/ACETAMINOPHEN 10 MG/325 MG TAB PO PRN ×2 (02:08→05:45)
--- NOTE | 2017-03-09 07:31 | PD.ORT.PN ---
Subjective Subjective Remarks afebrile. no CP/SOB Objective Vitals Vital Signs Date Time Temp Pulse Resp B/P (MAP) Pulse Ox O2 Delivery O2 Flow Rate FiO2 03/09/17 00:07 99.4 64 20 118/67 (84) 93 03/08/17 20:12 98.7 57 20 116/71 (86) 95 03/08/17 16:00 96.9 55 19 112/60 (77) 97 03/08/17 13:55 17 03/08/17 12:00 96.9 66 20 117/65 (82) 95 03/08/17 10:46 18 03/08/17 08:19 17 03/08/17 07:38 96.9 57 19 109/60 (76) 97 I/O 03/08/17 03/08/17 03/08/17 03/09/17 03/09/17 03/09/17 07:00 15:00 23:00 07:00 15:00 23:00 Intake Total 360 ml 220 ml 1000 ml 980 ml Output Total 1710 ml 910 ml 1000 ml Balance -1350 ml 220 ml 90 ml -20 ml Intake Oral 360 ml 120 ml 1000 ml 780 ml IV Total 100 ml 200 ml Output Urine Total 1700 ml 900 ml 1000 ml Drainage Total 10 ml 10 ml # Bowel Movements 0 Result Diagram: 03/06/17 0815 03/06/17 0815 Imaging Last 24 hours Impressions Chest X-Ray 03/05/17 1359 Signed Impressions: Service Date/Time: Sunday, March 05, 2017 14:33 - CONCLUSION: No acute disease. Leoncio Cleveland MD FACR Objective Remarks RLE: swelling and erythema. pain with movement improved Dressing CDI. grossly nvi Assessment & Plan Assessment and Plan POD 3 - I&D of right knee PLAN: Weightbearing as tolerated. Antibiotics per ID + S.aureus PICC line in place. Discharge to home when arrangements made for IV antibiotics. Follow-up with Dr. Calvo in 2 weeks. Daily dressing change. [place] for pain. DVT prophylaxis per medical team if felt necessary Haroldo Adamson Jr., MD Mar 09, 2017 07:31
[2017-03-09 07:43] VITALS: BP 109/66; PULSE 56; RESP 19; TEMP 98; O2SAT 95
[2017-03-09] MEDS: DOCUSATE SODIUM 100 MG CAP PO SCH (08:00)
[2017-03-09] MEDS: SODIUM CHLORIDE 0.9% FLUSH 10 ML FLUSH IV FLUSH SCH (08:01)
[2017-03-09] MEDS: HYDROmorphone HCL PF 2 MG/ML VIAL IV PUSH PRN (09:10)
[2017-03-09 11:28] VITALS: BP 112/68; PULSE 61; RESP 20; TEMP 98.7; O2SAT 98
--- NOTE | 2017-03-09 12:49 | HHI.PR ---
Subjective Remarks pt now says he is tolerating the percocet and it works great...but says when he gets home he wants to use tylenol alternating with ibuprofen and wants a percocet type drug without the tylenol..I explained that would probably be oxycodone and now he requests another med change from percocet to oxycodone. Objective Vitals nad heart reg lung cta abd s/nt ext right knee bandaged. Vital Signs Date Time Temp Pulse Resp B/P (MAP) Pulse Ox O2 Delivery O2 Flow Rate FiO2 03/09/17 11:28 98.7 61 20 112/68 (83) 98 03/09/17 07:43 98.0 56 19 109/66 (80) 95 03/09/17 00:07 99.4 64 20 118/67 (84) 93 03/08/17 20:12 98.7 57 20 116/71 (86) 95 03/08/17 16:00 96.9 55 19 112/60 (77) 97 03/08/17 13:55 17 03/09/17 03/09/17 03/10/17 15:00 23:00 07:00 Intake Total 120 ml Balance 120 ml Intake Oral 120 ml Result Diagram: 03/06/17 0815 03/06/17 0815 Imaging Last Impressions Chest X-Ray 03/05/17 1359 Signed Impressions: Service Date/Time: Sunday, March 05, 2017 14:33 - CONCLUSION: No acute disease. Leoncio Cleveland MD FACR Procedures I&D right knee with Dr. Cedillo 03/06 A/P Problem List: (1) Septic arthritis ICD Codes: M00.9 - Pyogenic arthritis, unspecified Status: Acute Plan: Septic arthritis -Patient was in his normal state of health until approximately a week ago while he was in [facility]. [facility] became swollen and painful he was treated in [facility] with aspiration of serosanguineous fluid then discharged home with ibuprofen diagnosed with joint effusion. Patient returned to the hospital today due to continued edema and pain in the right knee. -Aspiration of joint fluid reveals 64,000 white blood cells, 3000 red blood cells 100 neutrophils. Consistent with septic arthritis. -Patient has been started on vancomycin (with pharmacy consult) and Rocephin in the emergency department. - patient does not want hydrocodone for pain reports Soma works well for him -- Orthopedic surgery consulted -Patient s/p right knee I&D 03/[address] Cedillo- cleared for DC home with IV abx and [facility] for wound care - wound culture from the knee results showing Staphylococcus Aureus - synovial fluid from the knee results showing Staphylococcus Aureus - - PICC line placed 03/06 -discussed with dr Márquez...plan cefazolin until 04/01..f/u [facility]cp . -drain out on 03/08 -adjusting pain control. uncontrolled pain an issue and now says norco causing nausea..wanted to try po dilaudid and now percocet instead. pt now today on 03/09 says he is tolerating the percocet and it works great...but says when he gets home he wants to use tylenol alternating with ibuprofen and wants a percocet type drug without the tylenol..I explained that would probably be oxycodone and now he requests another med change from percocet to oxycodone. plan is for d/c home tomorrow with [facility] and iv abx and pain control. I will write to medically d/c him. he is demanding to be seen by ortho prior to d/c to unwrap and look at his knee. Spoke to RN who is going to let Ortho know. Marc Jean MD Mar 09, 2017 12:49
[2017-03-09] MEDS ORDERED: OXYC-395 PO ×2 (12:50→13:02)
[2017-03-09 16:00] VITALS: BP 121/72; PULSE 71; RESP 20; TEMP 97.8; O2SAT 96
[2017-03-09] MEDS ORDERED: WALKER WHEELS/F1 MIS (16:14)
== END 2017-03-09 18:14 | disposition home health service (06) | DRG 487 ==
LOC: NEPE 10:13 → NEDA 14:10 → N07A 15:16
PROVIDERS: ADMIT Hospitalist; ATTEND Hospitalist
PROC: 0S9C3ZX Drainage of Right Knee Joint, Percutaneous Approach, Diagnostic (ICD-10-PCS; 2017-03-05)
PROC: 3E0F7GC Introduction of Other Therapeutic Substance into Respiratory Tract, Via Natural or Artificial Opening (ICD-10-PCS; 2017-03-05)
PROC: 0SBC0ZZ Excision of Right Knee Joint, Open Approach (ICD-10-PCS; 2017-03-06)
PROC: 0S9C00Z Drainage of Right Knee Joint with Drainage Device, Open Approach (ICD-10-PCS; principal; 2017-03-06 08:50)
DX: M00.061 Staphylococcal arthritis, right knee (principal); Z99.81 Dependence on supplemental oxygen; B95.61 Methicillin susceptible Staphylococcus aureus infection as the cause of diseases classified elsewhere; G47.33 Obstructive sleep apnea (adult) (pediatric); Z87.891 Personal history of nicotine dependence; M19.90 Unspecified osteoarthritis, unspecified site; R26.2 Difficulty in walking, not elsewhere classified; Z85.828 Personal history of other malignant neoplasm of skin; R03.0 Elevated blood-pressure reading, without diagnosis of hypertension
CPT/HCPCS: 36569; 71010; 76937; 80048; 80053; 80202; 81001; 82945; 83605; 84157; 85025; 85652; 86403; 87015; 87040; 87070; 87102; 87116; 87147; 87176; 87186; 87205; 87206; 89051; 93005; 94150; 96365; 96367; 96372; J0690; J0696; J1170; J1580; J1642; J1885; J2175; J3370; J7030; J7040